=== PATIENT | male | born 1975 | race Caucasian/White ===

== ENCOUNTER 2024-11-29 19:24 | Emergency (ER) | payer MEDICAID ==
[~2024-11-29] VITALS: Ht 175.3 cm; Wt 118.0 kg
[2024-11-29 19:26] VITALS: TEMP 98.6; O2SAT 96
[2024-11-29 19:50] VITALS: BP 116/73; PULSE 83; RESP 16; O2SAT 98
== END 2024-11-29 20:38 | disposition home or self-care (01) ==
LOC: ER 19:24
DX: R07.89 Other chest pain (principal); I10 Essential (primary) hypertension; Z95.1 Presence of aortocoronary bypass graft; Z95.5 Presence of coronary angioplasty implant and graft
CPT/HCPCS: 93005; 99283